=== PATIENT | female | born 1960 | race African-American/Black ===

== ENCOUNTER → 2019-05-18 | Outpatient (CLI) | payer OTHER ==
[~2019-05-18] MED LIST: ADVAIR HFA 230M12 GM INH; CYMBALTA60 MG PO; FLEXERIL PO; MICRO AIR1 EACH MC; PERCOCET 7.5-31 EACH PO; PHENERGAN 25 MG25 MG PO; PREDNISONE 20 M20 M1 PO; PROAIR HFA8.5 GM; PROVENTIL HFA6.7 G1 INH; SPIRIVA INH; TESSALON PERLE100 MG PO; ZANTAC 150MG T150 MG PO; ZPAK PO
== END ==
LOC: CAT 15:40
DX: S09.90XA Unspecified injury of head, initial encounter (principal); X58.XXXA Exposure to other specified factors, initial encounter; Y93.89 Activity, other specified; Y92.89 Other specified places as the place of occurrence of the external cause; Y99.8 Other external cause status